=== PATIENT | male | born 1945 | race Caucasian/White ===

== ENCOUNTER → 2016-11-23 | Outpatient (CLI) | payer MEDICARE, MEDICAID | LOC: RAD 15:00 | PROVIDERS: ATTEND Physician Assistant | DX: J43.9 Emphysema, unspecified (principal) | CPT/HCPCS: 71020 ==

== ENCOUNTER 2016-11-24 10:57 | Day surgery (SDC) | payer MEDICARE, MEDICAID ==
[~2016-11-24 10:57] MED LIST: PROPOFOL INJ 200 MG/20 ML VIAL IV ONE
[2016-11-24] MEDS ORDERED: IPRATROPIUM/ALBUTEROL 0.5-2.5 MG/3 ML AMPUL NEB ONE (11:04)
[2016-11-24 12:25] VITALS: BP 109/54
--- NOTE | 2016-11-24 12:35 | Operative Report ---
Operative Report DATE OF SURGERY: 11/24/16 Operative Report: The risks, benefits and alternatives of the procedure including risks of bleeding, perforation requiring surgery are explained to the patient in detail and informed consent is obtained. Patient is taken back to the endoscopy suite. He is placed in a left lateral decubital position. Timeout is called. Propofol medication is administered. A rectal examination is done which did not reveal any masses, tears or fissures. An Olympus videoscope was inserted into the patient's rectum. Keeping the lumen in site at all times the scope was then gradually advanced all the way to the cecum. The cecum as identified by the usual anatomical landmarks including the ileocecal valve as well as the appendiceal office. Photodocumentation is obtained. Prep is good. The scope was then sequentially pulled back via the rest segments of the colon including the ascending colon, hepatic flexure, transverse colon, splenic flexure, descending colon and finally into the rectosigmoid colon. Retroflexion maneuvers performed. PREOPERATIVE DIAGNOSIS: Anemia POSTOPERATIVE DIAGNOSIS: 2 colon polyps that I removed via snare polypectomy. One in the area of the sigmoid and the other in the transverse colon. Both of the polyps were retrieved. Diverticulosis. Internal hemorrhoids. No active bleeding seen OPERATION: Colonoscopy with snare polypectomy SURGEON: MARIANA PARK ANESTHESIA: LMAC TISSUE REMOVED OR ALTERED: Polyps retrieved COMPLICATIONS: None. ESTIMATED BLOOD LOSS: none. INTRAOPERATIVE FINDINGS: As described above. No evidence of bleeding lesions or AVMs. No ischemic colitis noted PROCEDURE: Patient tolerated the procedure well. No immediate postprocedure complications are noted. Patient is discharged in good condition. Discharge date 11/24/2016. Discharge activity: Regular. Discharge diet: Regular. Surveillance colonoscopy in 3-5 years. High-fiber diet Patient is instructed to call the office or proceed to the emergency room after any further problems or questions. Patient does have a 2-3 week follow-up to discuss findings. Follow-up on biopsies
== END 2016-11-24 12:20 | disposition home or self-care (01) ==
LOC: END 10:57
PROVIDERS: ATTEND Internal Medicine Gastroenterology
PROC: 0DBL8ZX Excision of Transverse Colon, Via Natural or Artificial Opening Endoscopic, Diagnostic (ICD-10-PCS; 2016-11-24)
PROC: 0DBN8ZX Excision of Sigmoid Colon, Via Natural or Artificial Opening Endoscopic, Diagnostic (ICD-10-PCS; principal; 2016-11-24 14:00)
DX: D12.5 Benign neoplasm of sigmoid colon (principal); D12.3 Benign neoplasm of transverse colon; K57.30 Diverticulosis of large intestine without perforation or abscess without bleeding; K64.8 Other hemorrhoids; D64.9 Anemia, unspecified; E11.9 Type 2 diabetes mellitus without complications; I10 Essential (primary) hypertension; E78.00 Pure hypercholesterolemia, unspecified; J43.9 Emphysema, unspecified; I51.9 Heart disease, unspecified; F17.210 Nicotine dependence, cigarettes, uncomplicated; Z85.828 Personal history of other malignant neoplasm of skin; Z79.82 Long term (current) use of aspirin; Z79.899 Other long term (current) drug therapy; Z79.51 Long term (current) use of inhaled steroids; Z79.4 Long term (current) use of insulin
CPT/HCPCS: 45385; 88305 ×2; 94640; J2704; A9270; 810; J7620

== ENCOUNTER 2016-12-10 08:55 | Day surgery (SDC) | payer MEDICARE, MEDICAID ==
[~2016-12-10 08:55] MED LIST changes: +CHONDR SU A NA/HYALUR INTRAOC KIT (SURGICARE) ONE; +KETOROLAC TROMETHAMINE 0.45% 4 DROP/0.4 ML DROPERETTE OD PRN; +LIDOCAINE 1% INJ-PF (10 MG/ML) 30 ML SDV ONE; +PHENYLEPHRINE/KETOROLAC 1%-0.3% 4 ML VIAL ONE; -PROPOFOL INJ 200 MG/20 ML VIAL IV ONE; +TOBRAMYCIN SULFATE/DEXAMETH OPH OINTMENT 3.5 GM ONE
[2016-12-10] MEDS: TROPICAMIDE 1% OPH SOLN 3 ML OD PRN ×3 (09:11→09:45)
[2016-12-10] MEDS: CYCLOPENTOLATE 0.2%/PHENYLEPHRINE 1% OPH SOLN 2 ML OD PRN ×3 (09:11→09:45)
[2016-12-10] MEDS: BESIFLOXACIN HCL 0.6% OPH SUSP 5 ML BOTTLE OD PRN ×3 (09:12→10:18)
[2016-12-10] MEDS: TETRACAINE HCL 0.5% OPH SOLN 0.6 ML DROPERETTE OD PRN ×3 (09:13→09:54)
[2016-12-10] MEDS ORDERED: FENTANYL CITRATE INJ/PF 100 MCG/2 ML AMPUL ONE (09:42)
[2016-12-10] MEDS ORDERED: MIDAZOLAM 2 MG/2 ML INJ ONE (09:42)
== END 2016-12-10 11:00 | disposition home or self-care (01) ==
LOC: SC 08:55
PROVIDERS: ATTEND Ophthalmology
PROC: 08RJ3JZ Replacement of Right Lens with Synthetic Substitute, Percutaneous Approach (ICD-10-PCS; principal; 2016-12-10 10:15)
DX: H25.11 Age-related nuclear cataract, right eye (principal); F17.210 Nicotine dependence, cigarettes, uncomplicated; M19.90 Unspecified osteoarthritis, unspecified site; J44.9 Chronic obstructive pulmonary disease, unspecified; I25.10 Atherosclerotic heart disease of native coronary artery without angina pectoris; E78.00 Pure hypercholesterolemia, unspecified; I12.9 Hypertensive chronic kidney disease with stage 1 through stage 4 chronic kidney disease, or unspecified chronic kidney disease; N18.4 Chronic kidney disease, stage 4 (severe); G70.9 Myoneural disorder, unspecified; K21.9 Gastro-esophageal reflux disease without esophagitis; Z79.899 Other long term (current) drug therapy; Z98.61 Coronary angioplasty status; I25.2 Old myocardial infarction; Z99.2 Dependence on renal dialysis; Z79.51 Long term (current) use of inhaled steroids; Z79.02 Long term (current) use of antithrombotics/antiplatelets
CPT/HCPCS: 66984; V2630; J2250; J3490 ×3; A9270; J3010; C9447; 142

== ENCOUNTER 2016-12-31 08:29 | Day surgery (SDC) | payer MEDICARE, MEDICAID ==
[~2016-12-31 08:29] MED LIST changes: -CHONDR SU A NA/HYALUR INTRAOC KIT (SURGICARE) ONE; -KETOROLAC TROMETHAMINE 0.45% 4 DROP/0.4 ML DROPERETTE OD PRN; +KETOROLAC TROMETHAMINE 0.45% 4 DROP/0.4 ML DROPERETTE OS PRN; -LIDOCAINE 1% INJ-PF (10 MG/ML) 30 ML SDV ONE; -PHENYLEPHRINE/KETOROLAC 1%-0.3% 4 ML VIAL ONE; -TOBRAMYCIN SULFATE/DEXAMETH OPH OINTMENT 3.5 GM ONE
[2016-12-31] MEDS: BESIFLOXACIN HCL 0.6% OPH SUSP 5 ML BOTTLE OS PRN ×4 (09:16→10:16)
[2016-12-31] MEDS: TROPICAMIDE 1% OPH SOLN 3 ML OS PRN ×3 (09:16→09:37)
[2016-12-31] MEDS: CYCLOPENTOLATE 0.2%/PHENYLEPHRINE 1% OPH SOLN 2 ML OS PRN ×3 (09:16→09:37)
[2016-12-31] MEDS: TETRACAINE HCL 0.5% OPH SOLN 0.6 ML DROPERETTE OS PRN ×3 (09:17→09:54)
[2016-12-31] MEDS ORDERED: LIDOCAINE 1% INJ-PF (10 MG/ML) 30 ML SDV ONE (09:29)
[2016-12-31] MEDS ORDERED: CHONDR SU A NA/HYALUR INTRAOC KIT (SURGICARE) ONE (09:29)
[2016-12-31] MEDS ORDERED: PHENYLEPHRINE/KETOROLAC 1%-0.3% 4 ML VIAL ONE (09:29)
[2016-12-31] MEDS ORDERED: ALBUTEROL SULFATE 0.083% NEB 2.5 MG/3 ML AMPUL NEB ONE (09:35)
[2016-12-31] MEDS ORDERED: MIDAZOLAM 2 MG/2 ML INJ ONE ×2 (09:36→09:48)
[2016-12-31] MEDS ORDERED: FENTANYL CITRATE INJ/PF 100 MCG/2 ML AMPUL ONE (09:36)
[2016-12-31] MEDS: TOBRAMYCIN SULFATE/DEXAMETH OPH OINTMENT 3.5 GM ONE ×2 (10:14→10:16)
== END 2016-12-31 10:59 | disposition home or self-care (01) ==
LOC: SC 08:29
PROVIDERS: ATTEND Ophthalmology
PROC: 08RK3JZ Replacement of Left Lens with Synthetic Substitute, Percutaneous Approach (ICD-10-PCS; principal; 2016-12-31 09:45)
DX: H25.12 Age-related nuclear cataract, left eye (principal); I12.9 Hypertensive chronic kidney disease with stage 1 through stage 4 chronic kidney disease, or unspecified chronic kidney disease; N18.4 Chronic kidney disease, stage 4 (severe); F17.210 Nicotine dependence, cigarettes, uncomplicated; M19.90 Unspecified osteoarthritis, unspecified site; J44.9 Chronic obstructive pulmonary disease, unspecified; I25.10 Atherosclerotic heart disease of native coronary artery without angina pectoris; E78.00 Pure hypercholesterolemia, unspecified; K21.9 Gastro-esophageal reflux disease without esophagitis; Z79.51 Long term (current) use of inhaled steroids; I25.2 Old myocardial infarction; Z79.899 Other long term (current) drug therapy; Z99.2 Dependence on renal dialysis; Z79.02 Long term (current) use of antithrombotics/antiplatelets; Z79.82 Long term (current) use of aspirin
CPT/HCPCS: 66984; V2630; J2250; J3490 ×3; A9270 ×2; J3010; C9447; 142

== ENCOUNTER 2017-01-27 19:48 | Emergency (ER) | payer MEDICARE, MEDICAID ==
--- NOTE | 2017-01-27 19:57 | ER Document Report ---
ED Medical Screen (RME) - General Stated Complaint: TROUBLE BREATHING Notes: She states he has not been feeling good for several days. Patient has COPD and has had increased coughing. Noticed blood in his sputum. No known fever. Patient does use a nebulizer at home for breathing difficulties. He denies chest pain, just is having difficulty breathing. She has a history of pneumonia. Patient's last heart attack was in July, and his heart is only functioning at 20%. Now is having kidney failure and has dialysis 3 times weekly. Patient was dialyzed today. Patient does have a history of congestive heart failure, but denies increased swelling to extremities. I have greeted and performed a rapid initial assessment of this patient. A comprehensive ED assessment and evaluation of the patient, analysis of test results and completion of the medical decision making process will be conducted by additional ED providers. TRAVEL OUTSIDE OF THE [place] IN LAST 30 DAYS: No - Related Data Allergies/Adverse Reactions: adhesive tape Allergy (Verified 12/31/16 09:10) Past Medical History - Past Medical History Cardiac Medical History: Reports: Hx Coronary Artery Disease, Hx Heart Attack - 6 MTHS/STENTS, Hx Hypercholesterolemia, Hx Hypertension - MEDICATED, Hx Peripheral Vascular Disease Pulmonary Medical History: Reports: Hx COPD Denies: Hx Asthma, Hx Bronchitis, Hx Pneumonia Neurological Medical History: Denies: Hx Cerebrovascular Accident, Hx Seizures - TREMORS Endocrine Medical History: Reports: Hx Diabetes Mellitus Type 2 Renal/ Medical History: Reports: Hx End Stage Renal Disease Malignancy Medical History: Reports Hx Skin Cancer - Basal cell carcinoma to the tip of his nose removed summer GI Medical History: Reports: Hx Gastroesophageal Reflux Disease. Denies: Hx Hepatitis, Hx Hiatal Hernia, Hx Ulcer Musculoskeltal Medical History: Reports Hx Arthritis - osteoarthritis Psychiatric Medical History: Reports: Hx Anxiety Infectious Medical History: Denies: Hx Hepatitis Past Surgical History: Reports: Hx Appendectomy, Hx Coronary Artery Bypass Graft - 2 with last one in 2013, Hx Coronary Stent - Multiple, Hx Open Heart Surgery, Hx Vascular Surgery - PermCath placement for dialysis. Denies: Hx Cholecystectomy, Hx Pacemaker - Immunizations Hx Diphtheria, Pertussis, Tetanus Vaccination: Yes Physical Exam - Respiratory Respiratory status: Labored Notes: Patient's lungs diminished lower lobes, does have inspiratory and expiratory upper lobe wheezing.
[2017-01-27] MEDS ORDERED: ALBUTEROL SULFATE 0.083% NEB 2.5 MG/3 ML AMPUL NEB ONE (20:01)
[2017-01-27 20:21] LABS: ABSOLUTE BASOPHILS # (AUTO) 0.1 10^3/uL (0.0-0.2); ABSOLUTE EOSINOPHILS # (AUTO) 0.2 10^3/uL (0.0-0.6); ABSOLUTE LYMPHOCYTES (AUTO) 0.9 10^3/uL (0.5-4.7); ABSOLUTE MONOCYTES (AUTO) 0.7 10^3/uL (0.1-1.4); ABSOLUTE NEUT (AUTO) 6.8 10^3/uL (1.7-8.2); BASOPHILS % (AUTO) 0.7 % (0-2); EOSINOPHILS % (AUTO) 1.7 % (0-6); HEMATOCRIT 34.5 % (37.9-51.0); HEMOGLOBIN 11.5 g/dL (13.5-17.0); LYMPHOCYTES % (AUTO) 10.7 % (13-45); MEAN CORPUSCULAR HEMOGLOBIN 29.4 pg (27.0-33.4); MEAN CORPUSCULAR HGB CONC 33.3 g/dL (32.0-36.0); MEAN CORPUSCULAR VOLUME 88 fl (80-97); MONOCYTES % (AUTO) 8.3 % (3-13); RED BLOOD COUNT 3.91 10^6/uL (4.35-5.55); RED CELL DISTRIBUTION WIDTH 16.6 % (11.5-14.0); SEGMENTED NEUTROPHILS % (AUTO) 78.6 % (42-78); WHITE BLOOD COUNT 8.6 10^3/uL (4.0-10.5)
[2017-01-27 20:35] LABS: ALANINE AMINOTRANSFERASE 28 U/L (21-72); ALBUMIN 3.6 g/dL (3.5-5.0); ALKALINE PHOSPHATASE 135 U/L (38-126); ANION GAP 16 (5-19); ASPARTATE AMINO TRANSFERASE 20 U/L (17-59); BILIRUBIN,DIRECT 0.4 mg/dL (0.0-0.4); BILIRUBIN,TOTAL 0.7 mg/dL (0.2-1.3); BLOOD UREA NITROGEN 24 mg/dL (7-20); CALCIUM 9.1 mg/dL (8.4-10.2); CARBON DIOXIDE 21 mmol/L (22-30); CHLORIDE 102 mmol/L (98-107); CREATINE KINASE 39 U/L (55-170); CREATININE RESULT 3.84 mg/dL (0.52-1.25); GLUCOSE 107 mg/dL (75-110); POTASSIUM 4.4 mmol/L (3.6-5.0); SODIUM 138.8 mmol/L (137-145); TOTAL PROTEIN 6.6 g/dL (6.3-8.2)
[2017-01-27 20:46] LABS: CREATINE KINASE MB 1.4 ng/mL (<4.55)
[2017-01-27] MEDS ORDERED: LEVOFLOXACIN 750 MG/D5W RTU 150 ML IV ONE (21:32)
[2017-01-27] MEDS ORDERED: METHYLPREDNISOLONE INJ 125 MG/2 ML SDV IV ONE (21:34)
--- NOTE | 2017-01-27 21:34 | ER Document Report ---
ED Respiratory Problem - General Chief Complaint: Breathing Difficulty Stated Complaint: TROUBLE BREATHING Time seen by provider: 21:20 Notes: Patient is a 71-year-old male with a past medical history of COPD and daily tobacco use that comes emergency department for chief complaint of worsening cough. He states he is coughing up yellow and whitish sputum, he states that he has had pneumonia almost yearly and he feels like he is developing it again. He denies fever, abdominal pain, chest pain. Other past medical history includes end-stage renal disease on hemodialysis, had dialysis today, [place] with stents, and low ejection fraction at about 20% reportedly. TRAVEL OUTSIDE OF THE [place] IN LAST 30 DAYS: No - Related Data Allergies/Adverse Reactions: adhesive tape Allergy (Verified 12/31/16 09:10) Past Medical History - General Information source: Patient, Relative - son - Social History Smoking Status: Current Every Day Smoker Chew tobacco use (# tins/day): No Smoking Education Provided: Yes - <3 min Frequency of alcohol use: None Drug Abuse: None Lives with: Family Family History: Reviewed & Not Pertinent Patient has suicidal ideation: No Patient has homicidal ideation: No - Past Medical History Cardiac Medical History: Reports: Hx Coronary Artery Disease, Hx Heart Attack - 6 MTHS/STENTS, Hx Hypercholesterolemia, Hx Hypertension - MEDICATED, Hx Peripheral Vascular Disease Pulmonary Medical History: Reports: Hx COPD Denies: Hx Asthma, Hx Bronchitis, Hx Pneumonia Neurological Medical History: Denies: Hx Cerebrovascular Accident, Hx Seizures - TREMORS Endocrine Medical History: Reports: Hx Diabetes Mellitus Type 2 Renal/ Medical History: Reports: Hx End Stage Renal Disease. Denies: Hx Peritoneal Dialysis Malignancy Medical History: Reports Hx Skin Cancer - Basal cell carcinoma to the tip of his nose removed summer GI Medical History: Reports: Hx Gastroesophageal Reflux Disease. Denies: Hx Hepatitis, Hx Hiatal Hernia, Hx Ulcer Musculoskeltal Medical History: Reports Hx Arthritis - osteoarthritis Psychiatric Medical History: Reports: Hx Anxiety Infectious Medical History: Denies: Hx Hepatitis Past Surgical History: Reports: Hx Appendectomy, Hx Coronary Artery Bypass Graft - 2 with last one in 2013, Hx Coronary Stent - Multiple, Hx Open Heart Surgery, Hx Vascular Surgery - PermCath placement for dialysis. Denies: Hx Cholecystectomy, Hx Pacemaker - Immunizations Hx Diphtheria, Pertussis, Tetanus Vaccination: Yes Review of Systems - Review of Systems Constitutional: No symptoms reported EENT: No symptoms reported Cardiovascular: No symptoms reported Respiratory: See HPI Gastrointestinal: No symptoms reported Genitourinary: No symptoms reported Male Genitourinary: No symptoms reported Musculoskeletal: No symptoms reported Skin: No symptoms reported Hematologic/Lymphatic: No symptoms reported Neurological/Psychological: No symptoms reported Physical Exam - Vital signs Vitals: Temp Pulse Resp BP Pulse Ox 99.1 F 127 H 16 152/80 H 92 01/27/17 19:52 01/27/17 19:52 01/27/17 19:52 01/27/17 19:52 01/27/17 19:52 Interpretation: Normal - General General appearance: Appears well, Alert In distress: None - HEENT Head: Normocephalic, Atraumatic Eyes: Normal Conjunctiva: Normal Extraocular movements intact: Yes Eyelashes: Normal Pupils: PERRL Nasal: Normal Mouth/Lips: Normal Mucous membranes: Normal Pharynx: Normal Neck: Normal - Respiratory Respiratory status: No respiratory distress Chest status: Nontender Breath sounds: Decreased air movement - moderately decreased bilaterally, otherwise clear, Productive cough - patient coughed up yellowish white sputum Chest palpation: Normal - Cardiovascular Rhythm: Regular, Tachycardia Heart sounds: Normal auscultation, S1 appreciated, S2 appreciated Murmur: No - Abdominal Inspection: Normal Distension: No distension Bowel sounds: Normal Tenderness: Nontender. No: Tender, Guarding Organomegaly: No organomegaly - Back Back: Normal, Nontender - Extremities General upper extremity: Normal inspection, Nontender, Normal color, Normal ROM , Normal temperature General lower extremity: Normal inspection, Nontender, Normal color, Normal ROM , Normal temperature, Normal weight bearing. No: Stewart's sign - Neurological Neuro grossly intact: Yes Cognition: Normal Orientation: AAOx4 Gackle Coma Scale Eye Opening: Spontaneous Esteban Coma Scale Verbal: Oriented Gackle Coma Scale Motor: Obeys Commands Gackle Coma Scale Total: 15 Speech: Normal Motor strength normal: LUE, RUE, LLE, RLE Sensory: Normal - Psychological Associated symptoms: Normal affect, Normal mood - Skin Skin Temperature: Warm Skin Moisture: Dry Skin Color: Normal Course - Re-evaluation Re-evalutation: EKG is not an ideal tracing, however no ST segment elevations or depressions or T-wave inversions in consecutive leads, shows tachycardia. Patient denying any chest pain. He was initially treated with albuterol and became tachycardic into the 120s, after this tachycardia gradually improved and almost resolved. No wheezing on my examination, patient has a productive cough. Chest x-ray showing small pleural effusions, possible developing infiltrate. No fever. Clear lungs on my examination although they're mildly decreased bilaterally, suspect this is chronic. Patient is not hypoxic on room air, saturating at about 95%, patient does not have any tachypnea on my examination. Troponin is elevated, however this is consistent with every time patient has troponin evaluated, chronic kidney disease present, patient received dialysis today, workup nonspecific. Patient given Levaquin IV, patient requesting to leave, states he feels good been he has albuterol that he will take at home. Patient also states that he has a primary care appointment first thing in the morning, son confirms this. Patient does agree to perform ambulation with pulse oximetry, patient did remarkably well with no labored breathing, diaphoresis, or hypoxia. Patient still requesting to leave. Patient will be placed on Levaquin, instructed to follow-up tomorrow, instructed to return immediately if he worsens in any way. Patient states understanding and agreement. - Vital Signs Vital signs: Temp Pulse Resp BP Pulse Ox 98.1 F 127 H 25 H 138/69 H 95 01/28/17 00:00 01/27/17 19:52 01/28/17 00:00 01/28/17 00:00 01/28/17 00:01 - Laboratory Result Diagrams: 01/27/17 20:05 01/27/17 20:05 Laboratory results interpreted by me: 01/27/17 01/27/17 01/27/17 20:05 20:05 20:05 RBC 3.91 L Hgb 11.5 L Hct 34.5 L RDW 16.6 H Seg Neutrophils % 78.6 H Lymphocytes % 10.7 L Carbon Dioxide 21 L BUN 24 H Creatinine 3.84 H Est GFR ( Amer) 19 L Est GFR (Non-Af Amer) 16 L Alkaline Phosphatase 135 H Creatine Kinase 39 L NT-Pro-B Natriuret Pep 62737 H Discharge - Discharge Clinical Impression: Productive cough, Shortness of breath, Tobacco abuse Condition: Stable Disposition: HOME, SELF-CARE Additional Instructions: X-ray imaging is concerning for developing pneumonia. Take the Levaquin antibiotic as directed. Please follow-up tomorrow as planned with your primary care for a reevaluation. Use your albuterol. Stop smoking. Return immediately to the emergency department for any concerning or worsening symptoms. Prescriptions: Levofloxacin [Levaquin 500 mg Tablet] 500 mg PO DAILY #10 tablet Forms: Smoking Cessation Education Referrals: BROOKE MOREIRA PA-C [Primary Care Provider] - Follow up tomorrow
[2017-01-27] MEDS ORDERED: HYDROCODONE/ACETAMINOPHEN 5-325 MG TABLET PO ONE (23:01)
[2017-01-27] MEDS ORDERED: HYDROCODONE/ACETAMINOPHEN 5-325 MG 6 TAB/DSPK PO PRN (23:46)
[2017-01-28 00:32] VITALS: BP 138/69
--- NOTE | 2017-01-28 08:27 | EKG REPORT ---
SEVERITY:- ABNORMAL ECG - SINUS TACHYCARDIA PROBABLE LEFT ATRIAL ABNORMALITY PROBABLE LVH WITH SECONDARY REPOL ABNRM CONSIDER ANTERIOR INFARCT : Confirmed by: Gabriel Rivera MD 28-Jan-2017 08:26:58
[2017-01-28 08:58] LABS: TROPONIN I 0.11 ng/mL
== END 2017-01-28 00:37 | disposition home or self-care (01) ==
LOC: ER 19:48
DX: R05 Cough (principal); R06.02 Shortness of breath; J44.9 Chronic obstructive pulmonary disease, unspecified; F17.200 Nicotine dependence, unspecified, uncomplicated; N18.6 End stage renal disease; Z99.2 Dependence on renal dialysis; I25.2 Old myocardial infarction
CPT/HCPCS: 93005; 99285; 96375; 96365; 96366; 36415; 87040; 82553; 82550; 85025; 80053; 84484; 83880; 71010; 93010; J2930; J1956; A9270 ×3